=== PATIENT | female | born 1960 | race Caucasian/White ===

== ENCOUNTER 2019-08-27 12:03 | Inpatient (IN) ==
[2019-08-27 14:35] LABS: Apearance,Urine Slightly Hazy (Clear); Bilirubin,Urine Negative (Negative); Blood, Urine Moderate mg/dL (Negative); Glucose,Urine (UA) Negative (Negative); Hyaline Casts,Urine 1 /LPF (0-3); Ketones,Urine Negative (Negative); Nitrite,Urine Negative (Negative); Protein,Urine Negative; RBC,Urine 1 /HPF (0-4); Squamous Epithelial Cell,Urine Occasional /HPF (0-10); Urine Color Yellow (Yellow); Urine Specific Gravity 1.013 (1.001-1.035); Urine Urobilinogen < 2.0 EU/DL (0.2-1.0); WBC,Urine 1 /HPF (0-6)
[2019-08-27] MEDS ORDERED: NALOXONE 0.4 MG/ML VIAL IV ONE (14:40)
[2019-08-27] MEDS ORDERED: ONDANSETRON 4 MG/2 ML VIAL IV PRN (14:52)
[2019-08-27] MEDS ORDERED: ACETAMINOPHEN 325 MG TABLET PO PRN (14:52)
[2019-08-27] MEDS ORDERED: GLUCAGON 1 MG VIAL IM PRN (14:52)
[2019-08-27] MEDS ORDERED: DEXTROSE 10% 250 ML BAG IV PRN (15:07)
[2019-08-27] MEDS: ENOXAPARIN 30 MG/0.3 ML SYRINGE SUBCUT SCH (15:15)
[2019-08-27] MEDS: SODIUM CHLORIDE 0.9% 1,000 ML IV SCH ×2 (15:15→23:59)
[2019-08-27] MEDS: INSULIN LISPRO 100 UNIT/ML SUBCUT SCH ×2 (16:45→20:13)
[2019-08-27 17:00] LABS: Barbiturates Screen,Urine Negative (Negative); Benzodiazepines Screen,Urine Positive (Negative); Cannabinoid Screen,Urine Negative (Negative); Opiate Screen,Urine Positive (Negative); Phencyclidine Screen,Urine Negative (Negative)
[2019-08-27 17:04] LABS: ABG Base Excess -3.3 MMOL/L (-2.5-2.5); ABG HCO3 21.6 MMOL/L (20-26); ABG Oxygen Saturation 97.4 % (95-100); ABG PCO2 53.4 MM HG (35-48); ABG PH 7.266 (7.35-7.45); ABG TCO2 22.2 MMOL/L (23-27); Allen Test Positive
[2019-08-27] MEDS: MEROPENEM 500 MG in SODIUM CHLORIDE 0.9% 100 ML IV SCH (17:52)
[2019-08-27 20:45] LABS: Allen Test Positive; Pt O2 Delivery Device BIPAP
[2019-08-27 20:46] LABS: ABG Base Excess -2.7 MMOL/L (-2.5-2.5); ABG HCO3 22.2 MMOL/L (20-26); ABG Oxygen Saturation 97.4 % (95-100); ABG PCO2 49.8 MM HG (35-48); ABG PH 7.295 (7.35-7.45); ABG TCO2 22.1 MMOL/L (23-27)
[2019-08-28] MEDS ORDERED: PHENYLEPHRINE DRIP 40 MG/250 ML PREMIX IV PRN (04:09)
[2019-08-28] MEDS: MEROPENEM 500 MG in SODIUM CHLORIDE 0.9% 100 ML IV SCH ×2 (04:19→09:04)
[2019-08-28 06:17] LABS: Basophils % 0.2 % (0.0-0.8); Eosinophils # 0.2 10*3/uL (0.0-0.87); Eosinophils % 2.8 % (0.00-10.9); Hematocrit 34.3 VOL% (35.7-47.0); Hemoglobin 10.5 GM/DL (12.0-16.0); Immature Granulocytes % 0.4 %; Immature Granulocytes Absolute 0.03 #; Lymphocytes # 1.7 10*3/uL (1.4-4.0); Lymphocytes % 20.6 % (21.3-54.2); Mean Corpuscular HGB Conc 30.6 GM/DL (32-36); Mean Corpuscular Volume 81.3 FL (87-102); Mean Platelet Volume 10.6 FL (9.6-12.0); Monocytes % 4.5 % (1.7-12.7); Neutrophils % 71.5 % (38.7-73.9); Platelet Count 258 T/CUMM (130-400); Red Blood Count 4.22 MC/CUMM (3.8-5.5); Red Cell Distribution Width 18.6 % (9.3-17.3); White Blood Count 8.3 T/CUMM (4-12)
[2019-08-28 07:10] LABS: Blood Urea Nitrogen 72 MG/DL (7-18); Calcium 8.4 MG/DL (8.5-10.1); Estimated Glom Filtration Rate 16 ML/MIN; Glucose 82 MG/DL (74-106); Osmolality,Calculated 292.8 MOS/KG (273-304); Troponin I < 0.015 NG/ML (0.00-0.045)
[2019-08-28] MEDS: SODIUM CHLORIDE 0.9% 1,000 ML IV SCH (07:52)
[2019-08-28] MEDS: INSULIN LISPRO 100 UNIT/ML SUBCUT SCH ×4 (07:52→21:50)
[2019-08-28] MEDS ORDERED: ALBUTEROL 2.5 MG/3 ML NEB RESP TX PRN (09:18)
[2019-08-28] MEDS ORDERED: SALIVA SUBSTITUTE SPRAY 60 ML CAN SWISH/SPIT PRN (09:18)
[2019-08-28] MEDS: PANTOPRAZOLE 40 MG TABLET PO SCH (10:22)
[2019-08-28] MEDS: SODIUM BICARB INJ 50 MEQ in SODIUM CHLORIDE 0.45% 1,000 ML IV SCH ×2 (10:22→21:13)
[2019-08-28] MEDS: MONTELUKAST 10 MG TABLET PO SCH (10:22)
[2019-08-28] MEDS: ENOXAPARIN 30 MG/0.3 ML SYRINGE SUBCUT SCH (16:39)
[2019-08-28] MEDS ORDERED: carvediloL 3.125 MG TABLET PO SCH (21:00)
[2019-08-28] MEDS ORDERED: MEROPENEM 500 MG in SODIUM CHLORIDE 0.9% 100 ML IV SCH (21:00)
[2019-08-28] MEDS: BUDESONIDE/FORMOTEROL 160-4.5 INHALER 6 GM INH SCH (21:49)
[2019-08-29 05:39] LABS: Basophils % 0.3 % (0.0-0.8); Eosinophils # 0.2 10*3/uL (0.0-0.87); Eosinophils % 3.4 % (0.00-10.9); Hematocrit 33.2 VOL% (35.7-47.0); Hemoglobin 10.2 GM/DL (12.0-16.0); Immature Granulocytes % 0.1 %; Immature Granulocytes Absolute 0.01 #; Lymphocytes # 2.1 10*3/uL (1.4-4.0); Lymphocytes % 30.8 % (21.3-54.2); Mean Corpuscular HGB Conc 30.7 GM/DL (32-36); Mean Corpuscular Volume 81.4 FL (87-102); Mean Platelet Volume 11.1 FL (9.6-12.0); Monocytes % 5.5 % (1.7-12.7); Neutrophils % 59.9 % (38.7-73.9); Platelet Count 235 T/CUMM (130-400); Red Blood Count 4.08 MC/CUMM (3.8-5.5); Red Cell Distribution Width 18.3 % (9.3-17.3); White Blood Count 6.7 T/CUMM (4-12)
[2019-08-29 06:04] LABS: Atypical Lymphocytes Few; Band Neutrophils 1 % (0-10); Calcium 9.2 MG/DL (8.5-10.1); Eosinophils 3 % (0-10); Hypochromasia 1+; Lymphocytes 31 % (20-55); Microcytosis 1+; Osmolality,Calculated 284.7 MOS/KG (273-304); Platelet Estimate Normal; Segmented Neutrophils 56 % (50-85); Total Cells Counted 100
[2019-08-29] MEDS: SODIUM BICARB INJ 50 MEQ in SODIUM CHLORIDE 0.45% 1,000 ML IV SCH (07:32)
[2019-08-29] MEDS: INSULIN LISPRO 100 UNIT/ML SUBCUT SCH ×2 (08:25→11:38)
[2019-08-29] MEDS: MONTELUKAST 10 MG TABLET PO SCH (09:08)
[2019-08-29] MEDS: PANTOPRAZOLE 40 MG TABLET PO SCH (09:08)
[2019-08-29] MEDS: BUDESONIDE/FORMOTEROL 160-4.5 INHALER 6 GM INH SCH (09:08)
[2019-08-29 11:42] VITALS: BP 130/72
== END 2019-08-29 13:36 | disposition home health service (06) | DRG 682 ==
LOC: N.ICU 13:28 → SUATTDRO 13:28 → N.5E 08-28 18:32
PROVIDERS: ADMIT Internal Medicine; ATTEND Hospitalist